=== PATIENT | female | born 1990 | race Caucasian/White ===

== ENCOUNTER 2019-01-04 16:20 | Inpatient (IN) ==
[2019-01-04 15:39] LABS: Basophils % 0.2 %; Eosinophils % 0.3 %; Hemoglobin 11.1 g/dL (11.5-15.4); Immature Granulocytes % 0.3 % (0-4); Lymphocytes # 2.1 K/mcL (0.6-4.6); Lymphocytes % 18.3 %; Mean Corpuscular HGB Conc 32.6 g/dL (31.6-35.5); Mean Corpuscular Hemoglobin 28.8 pg (28.0-33.3); Mean Corpuscular Volume 88.3 fL (83.0-100.0); Mean Platelet Volume 12.1 fL (9.4-12.4); Monocytes # 0.5 K/mcL (0.0-1.3); Monocytes % 4.3 %; Neutrophils # 8.8 K/mcL (1.6-8.9); Platelet Count 243 K/mcL (140-400); Red Blood Count 3.85 M/mcL (3.82-4.97); Red Cell Distribution Width 15.5 % (11.5-14.5); Segmented Neutrophils % 76.6 %
[2019-01-04 15:48] LABS: Amphetamine Screen,Urine Negative ng/mL (Cutoff=1000); Barbiturate Screen,Urine Negative ng/mL (Cutoff=200); Benzodiazepines Screen,Urine Negative ng/mL (Cutoff=200); Cannabinoid Screen,Urine Negative ng/mL (Cutoff = 50); Cocaine Screen,Urine Negative ng/mL (Cutoff= 300); Opiate Screen,Urine Negative ng/mL (Cutoff=300); Phencyclidine Screen,Urine Negative ng/mL (Cutoff=25)
[~2019-01-04 16:20] MED LIST: *HR* Succinylcholine 200 MG/10 ML VIAL IVP ONE; CeFAZolin Syr 3,000MG/30 ML 3,000 MG/30 ML SYRINGE IVPB ONE; Famotidine 20 MG/2 ML VIAL IVP ONE; Metoclopramide 10 MG/2 ML VIAL IVP ONE; Oxytocin 20 units/ LR 1000 mL 20 UNIT/1,000 ML BAG IVC ONE; Propofol 500 MG/50 ML INFUS..BTL ONE; Ringers Solution, Lactated 1,000 ML IVC ONE; Ringers Solution, Lactated 1,000 ML ONE
[2019-01-04] MEDS ORDERED: *HR* Morphine Sulfate/PF 10 MG/10 ML AMPUL ONE (16:21)
[2019-01-04] MEDS ORDERED: *HR* FentaNYL (PF) 100 MCG/2 ML VIAL ONE (16:21)
[2019-01-04] MEDS ORDERED: Bupivacaine/PF 0.75% in Dex 2 ML AMPUL INFILT ONE (16:22)
[2019-01-04] MEDS ORDERED: Naloxone 0.4 MG/ML INJ IVP PRN (16:22)
[2019-01-04] MEDS ORDERED: *HR* Oxytocin 10 UNIT/ML VIAL IM ONE (16:48)
[2019-01-04] MEDS ORDERED: Ringers Solution, Lactated 1,000 ML ONE ×2 (16:48→18:08)
[2019-01-04] MEDS ORDERED: EPHEDrine 50 MG/ML VIAL ONE (17:07)
--- NOTE | 2019-01-04 17:12 | OB/GYN History & Physical ---
Date of Encounter: 01/04/19 Time of Encounter: 17:12 Assessment and Plan (1) 38 weeks gestation of Current visit: No Status: Acute (2) Non-reassuring heart rate with late deceleration Current visit: Yes Status: Acute (3) Morbid obesity Current visit: No Status: Acute (4) Previous section Current visit: Yes Status: Acute History of Present Illness Chief complaint: nonreasurring tracing HPI: Ms. Swan is a 28 year old female presented to labor and delivery after being seen in the office with nonreassuring tracing in the office. Patient had a reactivity. This patient has a history 2 previous sections. She is doing well. She is having no complaints. This patient's weight is 179 kg. She has had 2 previous general anesthesias with her previous sections. She has no drug allergies. She is currently on vitamins. She is no chronic medical conditions. Surgical history is significant for 2 sections. Socially she denies tobacco, alcohol, illicit drug use. Family history is significant for pancreatic cancer and thyroid disease. Obstetric history significant for 2 previous deliveries via section Past Med Surg Social Fam HX - Past Medical History Medical history: no medical history Psychiatric history: no psych history - Past Surgical History Surgical History: Additional surgical history: x2 - Social History Smoking Status: Never smoker Smokeless Tobacco Status: No Alcohol use: none Drug use: prescription drug abuse - Family History Mother Living Status: Still Living Hx Family Cardiac Disorders: No Hx Family Respiratory Disorders: No Hx Family Cancer: No Hx Family GI Disorders: No Hx Family Genitourinary Disorders: No Hx Family Endocrine Disorder: Yes (hypothyroid) Hx Family Musculoskeletal Disorders: No Hx Family Neuromuscular Disorders: No Hx Family Neurologic Disorders: No Hx Family HEENT Disorders: No Hx Family Autoimmune Disorders: No Hx Family Reproductive Disorders: No Hx Family Psychosocial Disorders: No Hx Family Medical Disorders: No Obstetrical History - Pregnancies : 4 Para: 2 Term: 2 Livin Medications and Allergies Pnv95/Ferrous Fumarate/FA [ Vitamin Tablet] 1 tab PO DAILY 01/04/19 [History] Allergy/AdvReac Type Severity Reaction Status Date / Time No Known Allergies Allergy Verified 01/04/19 13:17 Review of System OB All systems PM: reviewed and no additional remarkable complaints except as stated Exam - Constitutional Constitutional: well developed, well nourished, no acute distress, morbidly obese - HEENT HEENT: EOMI, PERRL, Normocephaly - Neck Neck exam: full ROM - Lungs Respiratory exam: CTAB - Cardiovascular Cardiovascular exam: RRR - Abdomen Abdomen: Present: bowel sounds normal, gravid, non tender - Extremities Extremities exam: full ROM Results Result Diagrams: 01/04/19 15:15 Abnormal lab results WBC 11.5 K/mcL (4.3-11.1) H 01/04/19 15:15 Hgb 11.1 g/dL (11.5-15.4) L 01/04/19 15:15 Hct 34.0 % (35.3-44.9) L 01/04/19 15:15 RDW 15.5 % (11.5-14.5) H 01/04/19 15:15 All other labs normal. - VTE Reasons for not Prescribing Prophylaxis: Treatment not Indicated - Low risk for VTE
--- NOTE | 2019-01-04 19:00 | OB/GYN Procedure Note ---
Section - Date of procedure: 01/04/19 Preop diagnosis: desires repeat , category 2 FHT tracing Post-op diagnosis: same Procedure: repeat low transverse Surgeon: Jesus Alberto Monahan Blood Loss: 500 Was there an elder assistant present: Yes It Infrastructure Specialist: Joan Yin Spray Gun Repairer: Marcus Bello Anesthesia Type: Spinal section complications: none Disposition: Post floor Specimens: Placenta - (s) Infant A Infant Delivery Date: 01/04/19 Infant Delivery Time: 18:07 Presentation: vertex Position: OA Route of delivery: other Gender: Female Viability: Viable Pounds: 8 Ounces: 9 Gram Weight: 3.87 kg at 1 minute: 8 at 5 minutes: 9 Shoulder Dystocia: not encountered Placenta: partial extraction Cord: 3 umbilical vessels - Narrative Narrative: Patient presented to labor and delivery with non-reactive NST. Patient monitored on labor and delivery with a flat tracing. Tracing did come back having some variability. Patient then had some very large decelerations. Patient had had 2 previous sections with general anesthesia each time. We discussed repeat section she did wish to proceed. We felt was the patient's and baby's best interest because of the nonreassuring tracing. The risks, competitions and alternatives were discussed. Patient was then taken to the operating room with IV in place. She was given spinal anesthesia. The patient was then prepped and draped in the usual sterile fashion. Patient's pannus was taped up. I then proceeded with a Pfannenstiel incision through patient's previous scar. It was carried sharply through the subtenons fatty tissue, until the fascial layers reached. The fascia was then nicked in the midline and incised bilaterally with Rubio scissors. Was then dissected vertically for adequate exposure. Rectus abdominis muscles creatures and separate the midline and the perineum sharply entered. A Katina retractor was placed is able to see the uterus easily. A low transverse incision was then made in the Luria segment. The fluid was noted be clear. Incision was bluntly extended. The infant was then delivered without difficulty. There was a tight nuchal cord which was reduced. The rest the infant was then delivered. Infant cried immediately upon delivery. The cord was clamped cut. The infant was then passed to NICU team in attendance. Cord bloods obtained. The placenta was then delivered via uterine massage and lavage. Uterine lavage was then performed. The uterine incision was then closed with 0 Vicryl suture running locking fashion. At single interrupted stitch was placed for final hemostasis. The pelvic cavity was rinsed thoroughly with sterile water 2. Seeing no bleeding, the procedure was terminated. The fascia was then closed with loop 0 PDS. The suprafascial region was rinsed through sterile water 2 all bleeders cauterized. Septae stitches were placed with 0 Vicryl suture. The skin was closed kate. A peak a dressing was placed. Patient tolerated procedure well. Estimated blood loss was 500 mL. Patient delivered a female weight was 8 lbs. 9 oz. with Apgars of 8 at 1 minute and 9 at 5 minutes.
[2019-01-04] MEDS ORDERED: Acetaminophen IV 1,000 MG/100 ML INFUS..BTL IVPB ONE ×2 (19:30→22:06)
--- NOTE | 2019-01-04 19:46 | Anesthesia Evaluation Post Op ---
Date of Encounter: 01/04/19 Time of Encounter: 19:34 - Vital Signs Vital Signs: vss - Lungs Lungs: Clear Ascult./Percussion - Airway Airway: Non-obstructed - Mental Status Mental Status: Alert & Oriented, Answers Appropriately - Pain Pain Scale used: Luisa (Faces) - Nausea Vomiting Nausea Vomiting: Not Present - Discharge PostOp Status: Transfer Patient to floor
--- NOTE | 2019-01-04 20:20 | Anesthesia Evaluation PreOp ---
Date of Encounter: 01/04/19 Time of Encounter: 16:44 - Past History Planned Operation: repeat 38wks Cardiac History: Denies any Significant Hx Pulmonary History: Denies Any Significant HX CIGAR WRAPPER History: Denies Any Significant HX Other Medical History: Other (super MO, BMI 63,) Anesthesia History: No Prior Anesthetic Complications, Past Anesthesia (2 previous c-sections requiring GA, multiple attempts for spinal/epidurals.) Alcohol Use: none Drug use: prescription drug abuse Medications and Allergies Pnv95/Ferrous Fumarate/FA [ Vitamin Tablet] 1 tab PO DAILY 01/04/19 [History] Allergy/AdvReac Type Severity Reaction Status Date / Time No Known Allergies Allergy Verified 01/04/19 13:17 Anesthesia Results - Labs 01/04/19 15:15 Anesthesia Exam - HEENT Pupil (Motor): Pupils equal Mallampati: III Teeth: Normal Oral Opening: Greater than 3 - CIGAR WRAPPER LOC: Oriented CIGAR WRAPPER Motor: Normal RUE, Normal LUE, Normal RLE, Normal LLE, Normal Face CIGAR WRAPPER Sensory: Normal: RUE, LUE, RLE, LLE, Face - Cardiac Rhythm: Regular Murmur: None - Pulmonary Breath Sounds: bilateral Clear Respiratory Effort: Symmetrical Anesthesia Assess/Plan ASA Score: 3 Level of consciousness: Cooperative, Oriented Anesthetic Plan: General, Spinal (pt. willing to undergo attempts for spinal.), Epidural Monitoring Plan: Standard Monitors Recovery Plan: PACU
[2019-01-04] MEDS ORDERED: *HR* OxyCODONE/APAP 5/325 TABLET PO PRN (21:31)
[2019-01-04] MEDS ORDERED: Ondansetron 4 MG/2 ML VIAL IVP PRN (21:31)
[2019-01-04] MEDS ORDERED: Simethicone 80 MG TAB.CHEW PO PRN (21:31)
[2019-01-04] MEDS ORDERED: Metoclopramide 10 MG/2 ML VIAL IVP PRN (21:31)
[2019-01-04] MEDS ORDERED: Oxytocin 20 units/ LR 1000 mL 20 UNIT/1,000 ML BAG IVC SCH (21:31)
[2019-01-04] MEDS ORDERED: Sennosides 8.6 MG TABLET PO PRN (21:31)
[2019-01-04] MEDS ORDERED: Rho Immune Globulin 1,500 UNIT SYRINGE IM ONE (21:31)
[2019-01-04] MEDS: ceFAZolin sodium 3,000 MG in 0.9 % Sodium Chloride 100 ML IVPB SCH (23:40)
[2019-01-05] MEDS ORDERED: WATER FOR INJ IVP SCH
[2019-01-05] MEDS ORDERED: CEFAZOLIN IVP SCH
[2019-01-05 04:55] LABS: Basophils % 0.2 %; Eosinophils # 0.1 K/mcL (0.0-0.6); Eosinophils % 0.5 %; Hemoglobin 9.8 g/dL (11.5-15.4); Immature Granulocytes % 0.8 % (0-4); Lymphocytes # 2.8 K/mcL (0.6-4.6); Lymphocytes % 21.4 %; Mean Corpuscular HGB Conc 32.7 g/dL (31.6-35.5); Mean Corpuscular Hemoglobin 28.6 pg (28.0-33.3); Mean Corpuscular Volume 87.5 fL (83.0-100.0); Mean Platelet Volume 12.9 fL (9.4-12.4); Monocytes # 0.6 K/mcL (0.0-1.3); Monocytes % 4.8 %; Neutrophils # 9.5 K/mcL (1.6-8.9); Platelet Count 211 K/mcL (140-400); Red Blood Count 3.43 M/mcL (3.82-4.97); Red Cell Distribution Width 15.5 % (11.5-14.5); Segmented Neutrophils % 72.3 %
[2019-01-05] MEDS: Prenatal Vit/FA 1 EACH TABLET PO SCH (08:18)
[2019-01-05] MEDS: ceFAZolin sodium 3,000 MG in 0.9 % Sodium Chloride 100 ML IVPB SCH ×2 (08:19→15:58)
[2019-01-05] MEDS: Ibuprofen 600 MG TABLET PO PRN ×2 (08:21→16:06)
--- NOTE | 2019-01-05 11:11 | OB/GYN Progress Note ---
Date of Encounter: 01/05/19 Time of Encounter: 11:09 - Assessment and Plan (1) delivery delivered Current Visit: Yes Status: Acute Pt meeting POD1 milestones. Await ambulation, spontaneous void and passage of flatus. (2) anemia Current Visit: Yes Status: Acute (3) Morbid obesity Current Visit: No Status: Acute Continue DVT prophylaxis while inpatient. IS encouraged. Plan to discharge home on 7 days of antibiotics. CHARLENE dressing in place. (4) Rh negative state in antepartum period Current Visit: Yes Status: Acute Baby A positive. Rhogam today. (5) Patient is a currently breast-feeding mother Current Visit: Yes Status: Acute Subjective - Subjective Interval history: Spencer out this am. Await void. Pt plans to get out of bed soon. No complaints. Patient reports: appetite normal, pain well controlled : doing well Objective - Vital Signs Latest vital signs: Vital Signs Temp Pulse Pulse Resp BP Pulse Ox 01/05/19 08:15 98.3 F 102 12 94/62 96 01/05/19 04:05 102 15 01/05/19 00:46 98.4 F 100 15 113/72 95 01/04/19 23:30 98.3 F 100 100 15 111/73 96 01/04/19 22:15 98.3 F 94 16 103/70 95 01/04/19 21:15 98.7 F 94 14 121/78 97 Intake and Output 01/04/19 01/05/19 01/05/19 23:59 07:59 15:59 Intake Total 100 / 400 300 / 400 Output Total 250 / 250 750 / 750 Balance -250 / -250 -650 / -350 300 / -350 Intake: IV Fluids 100 / 100 Ancef 3,000 MG In 0.9 % Sodium 100 / 100 Chloride 100 ML @ 200 mls/hr IVPB Q8HR [facility] Rx#:[id number] Oral 300 / 300 Output: Urine 750 / 750 Catheter 250 / 250 Other: Meal Breakfast Percent of Meal Consumed 90% Weight 186.6 kg - Exam Lungs: bilateral: normal Chest: Normal S1, Normal S2 Extremities: Present: normal (foot pumps in place) Abdomen: Present: soft Incision: Present: dressed (CHARLENE dry and intact) Uterus: Present: firm (exam limited by habitus) - Labs Labs: Laboratory Results - last 24 hr 01/04/19 01/04/19 01/04/19 15:15 15:15 19:45 WBC 11.5 H RBC 3.85 Hgb 11.1 L Hct 34.0 L MCV 88.3 MCH 28.8 MCHC 32.6 RDW 15.5 H Plt Count 243 MPV 12.1 Immature Gran % 0.3 Seg Neutrophils % 76.6 Lymphocytes % 18.3 Monocytes % 4.3 Eosinophils % 0.3 Basophils % 0.2 Neutrophils # 8.8 Lymphocytes # 2.1 Monocytes # 0.5 Eosinophils # 0.0 Basophils # 0.0 Urine Opiates Screen Negative Ur Barbiturates Screen Negative Ur Phencyclidine Scrn Negative Ur Amphetamines Screen Negative U Benzodiazepines Scrn Negative Urine Cocaine Screen Negative U Marijuana (THC) Screen Negative Ur Drug Screen Interp See Below Screen NEGATIVE Baby's Blood Type A RH POSITIVE Mother's Blood Type AB RH NEGATIVE Rhogam Indicated YES Rhogam Req for Mother 1 01/05/19 04:27 WBC 13.1 H RBC 3.43 L Hgb 9.8 L Hct 30.0 L MCV 87.5 MCH 28.6 MCHC 32.7 RDW 15.5 H Plt Count 211 MPV 12.9 H Immature Gran % 0.8 Seg Neutrophils % 72.3 Lymphocytes % 21.4 Monocytes % 4.8 Eosinophils % 0.5 Basophils % 0.2 Neutrophils # 9.5 H Lymphocytes # 2.8 Monocytes # 0.6 Eosinophils # 0.1 Basophils # 0.0 Urine Opiates Screen Ur Barbiturates Screen Ur Phencyclidine Scrn Ur Amphetamines Screen U Benzodiazepines Scrn Urine Cocaine Screen U Marijuana (THC) Screen Ur Drug Screen Interp Screen Baby's Blood Type Mother's Blood Type Rhogam Indicated Rhogam Req for Mother
[2019-01-05] MEDS ORDERED: Rho Immune Globulin 1,500 UNIT SYRINGE IM PRN (13:07)
[2019-01-06] MEDS: Ibuprofen 600 MG TABLET PO PRN ×2 (08:00→14:31)
[2019-01-06] MEDS: Prenatal Vit/FA 1 EACH TABLET PO SCH (08:00)
[2019-01-06 08:35] VITALS: BP 120/83
--- NOTE | 2019-01-06 09:00 | Discharge Summary ---
Date of Encounter: 01/06/19 Time of Encounter: 08:57 - Discharge Diagnosis (1) delivery delivered Priority: Primary Status: Acute Comments: S/P Delivery Day 2 Pain well controlled VSS Lochia light and without clots Voiding without difficulty Tolerating regular diet and passing flatus Breast Feeding Discharge today POC per consult with Dr Malone (2) Patient is a currently breast-feeding mother Priority: Secondary Status: Acute (3) anemia Priority: Secondary Status: Acute Comments: Stable - Discharge Medications Prescriptions: New Breast Pump [BREAST PUMP] 1 each .ROUTE AD #1 each Docusate [Colace] 100 mg PO BID #60 capsule Ferrous Sulfate 325 mg PO BID #180 tablet Ibuprofen [Motrin] 600 mg PO Q6HR PRN #30 tablet PRN Reason: Cramping OxyCODONE/APAP 5/325 [Percocet 5/325 MG] 1 each PO Q6H PRN 5 Days #20 tablet PRN Reason: Moderate pain 4-6 Simethicone [Gas-X] 80 mg PO TID PRN tab.chew PRN Reason: Dyspepsia Continued Pnv95/Ferrous Fumarate/FA [ Vitamin Tablet] 1 tab PO DAILY Home Medications: Pnv95/Ferrous Fumarate/FA [ Vitamin Tablet] 1 tab PO DAILY 01/04/19 [History] Breast Pump [BREAST PUMP] 1 each .ROUTE AD #1 each 01/05/19 [Rx] Docusate [Colace] 100 mg PO BID #60 capsule 01/06/19 [Rx] Ferrous Sulfate 325 mg PO BID #180 tablet 01/06/19 [Rx] Ibuprofen [Motrin] 600 mg PO Q6HR PRN #30 tablet 01/06/19 [Rx] OxyCODONE/APAP 5/325 [Percocet 5/325 MG] 1 each PO Q6H PRN 5 Days #20 tablet 01/06/19 [Rx] Simethicone [Gas-X] 80 mg PO TID PRN tab.chew 01/06/19 [Rx] Allergies/Adverse Reactions: Allergy/AdvReac Type Severity Reaction Status Date / Time No Known Allergies Allergy Verified 01/04/19 13:17 Data Procedures and tests throughout hospitalization: Laboratory Tests 01/04/19 01/04/19 01/04/19 15:15 15:15 19:45 WBC 11.5 H RBC 3.85 Hgb 11.1 L Hct 34.0 L MCV 88.3 MCH 28.8 MCHC 32.6 RDW 15.5 H Plt Count 243 MPV 12.1 Immature Gran % 0.3 Seg Neutrophils % 76.6 Lymphocytes % 18.3 Monocytes % 4.3 Eosinophils % 0.3 Basophils % 0.2 Neutrophils # 8.8 Lymphocytes # 2.1 Monocytes # 0.5 Eosinophils # 0.0 Basophils # 0.0 Urine Opiates Screen Negative Ur Barbiturates Screen Negative Ur Phencyclidine Scrn Negative Ur Amphetamines Screen Negative U Benzodiazepines Scrn Negative Urine Cocaine Screen Negative U Marijuana (THC) Screen Negative Ur Drug Screen Interp See Below Screen NEGATIVE Baby's Blood Type A RH POSITIVE Mother's Blood Type AB RH NEGATIVE Rhogam Indicated YES Rhogam Req for Mother 1 01/05/19 04:27 WBC 13.1 H RBC 3.43 L Hgb 9.8 L Hct 30.0 L MCV 87.5 MCH 28.6 MCHC 32.7 RDW 15.5 H Plt Count 211 MPV 12.9 H Immature Gran % 0.8 Seg Neutrophils % 72.3 Lymphocytes % 21.4 Monocytes % 4.8 Eosinophils % 0.5 Basophils % 0.2 Neutrophils # 9.5 H Lymphocytes # 2.8 Monocytes # 0.6 Eosinophils # 0.1 Basophils # 0.0 Urine Opiates Screen Ur Barbiturates Screen Ur Phencyclidine Scrn Ur Amphetamines Screen U Benzodiazepines Scrn Urine Cocaine Screen U Marijuana (THC) Screen Ur Drug Screen Interp Screen Baby's Blood Type Mother's Blood Type Rhogam Indicated Rhogam Req for Mother Date of admission: 01/04/19 16:20 Primary care physician: Mac Centeno MD Discharging clinician: Cindy Nunez Anticipated date of discharge: 01/06/19 - Patient Status Disposition: Home, Self-Care Condition: Good Functional capacity at discharge: independent ambulation Overall status at discharge: patient is progressing back to baseline - Discharge Instructions Follow Up With: Mac Centeno MD [Primary Care Provider] - Jesus Alberto Pandey MD [Partnered Physician] - - Diet and Activity Activity: increase activity as tolerated Diet: regular diet Hospital Course Reason for admission: observation Delivery: section Episiotomy: none Laceration: none Other procedures: none complications: none Discharge diagnosis: IUP at term delivered [place] baby: female Time spent discussing smoking cessation with patient: 3 to 10 minutes Time Attestation: Total time spent providing and/or coordinating discharge services: - VTE Reasons for not Prescribing Prophylaxis: Treatment not Indicated - Low risk for VTE Documentation of Mechanical Device: Graduated compression elastic hosiery Exam - Constitutional Vitals: Temp Pulse Resp BP Pulse Ox 97.7 F 90 14 120/83 98 01/06/19 08:34 01/06/19 08:34 01/06/19 08:34 01/06/19 08:34 01/06/19 08:34 General appearance IM: cooperative, A&O X 3, pleasant - Respiratory Respiratory exam: Present: CTAB - Cardiovascular Cardiovascular exam IM: Present: RRR, +S1, +S2 - GI/Abdominal GI/Abdominal exam IM: normal bowel sounds, soft Incision: normal, dry, intact - Rectal Rectal exam: deferred - Uterine Tone: Firm Uterus Position: At Umbilicus, Midline - Extremities Exam Extremities exam IM: Present: normal capillary refill, normal inspection, radial pulses palpable and symmetrical - Neurological Exam Neurological exam: alert, oriented X3
== END 2019-01-06 16:45 | disposition home or self-care (01) | DRG 540 ==
LOC: 1NENULAB → 1NENUOBS 21:55
PROVIDERS: ADMIT Advanced Practice Midwife; ATTEND Advanced Practice Midwife